=== PATIENT | female | born 1950 | race Caucasian/White ===

== ENCOUNTER 2021-10-31 10:15 | Emergency (ER) | payer OTHER, MEDICARE, SELFPAY ==
--- NOTE | ~2021-10-31 | XR_ITS ---
EXAMINATION: XR LUMBOSACRAL SPINE CLINICAL INFORMATION: Low back pain. COMPARISON: None TECHNIQUE: Three views of the lumbosacral spine. FINDINGS: Mild lumbar levoscoliosis is seen with apex at L3. L5-S1 is transitional with partial sacralization of L5, greater on the right side. Mild to severe multilevel degenerative disc disease is seen most pronounced at L3-4 and L5-S1. There is an approximate 45% superior plate compression deformity at L2. The remainder the vertebral bodies are intact. The soft tissues are unremarkable. A sacral simulation device is seen on the left side with lead terminating overlying the right sacrum. Mild sacroiliac degenerative joint changes are seen, left greater than right. XR/XR lumbar spine 2-3V IMPRESSION: Multilevel degenerative changes as well as transitional anatomy as detailed above. The superior plate compression deformity at L2 does not demonstrate acute features.
--- NOTE | ~2021-10-31 | XR_ITS ---
EXAMINATION: LEFT FEMUR AND PELVIS CLINICAL INFORMATION: Hip and thigh pain COMPARISON: None TECHNIQUE: Single view pelvis, 2 views left femur FINDINGS: A stimulator device is present implanted in the left buttock with lead seen overlying right sacrum. No pelvic fracture or bony destructive lesions are seen. The left femur is intact without fractures. Marked degenerative changes are present in the with narrowing of the medial compartment. The hip joint is unremarkable. XR/XR femur LT 2V IMPRESSION: No hip or pelvic fracture. Degenerative changes in the knee predominantly involving
--- NOTE | ~2021-10-31 | US_ITS ---
EXAMINATION: US VENOUS ULTRASOUND WITH DOPPLER LOWER EXTREMITY, LEFT CLINICAL INFORMATION: Left calf swelling, edema. Assess for occult DVT. COMPARISON: None TECHNIQUE: Ultrasound of the deep veins is performed from the hip to the calf with compression sonography and color and pulse Doppler assessment. Spectral analysis with color-flow imaging is performed. FINDINGS: There is normal venous compression and respiratory variation and augmented flow. The visualized common femoral vein, superficial femoral vein, profunda femoral vein, popliteal vein, and the trifurcation region shows no evidence of deep venous thrombosis. No popliteal fossa cyst demonstrated. There are incidental left inguinal nodes with normal cecil architecture and short axis dimensions 0.5 cm. US/US venous duplex LE LT IMPRESSION: No DVT demonstrated in the left lower extremity.
--- NOTE | ~2021-10-31 | XR_ITS ---
EXAMINATION: LEFT FEMUR AND PELVIS CLINICAL INFORMATION: Hip and thigh pain COMPARISON: None TECHNIQUE: Single view pelvis, 2 views left femur FINDINGS: A stimulator device is present implanted in the left buttock with lead seen overlying right sacrum. No pelvic fracture or bony destructive lesions are seen. The left femur is intact without fractures. Marked degenerative changes are present in the with narrowing of the medial compartment. The hip joint is unremarkable. XR/XR pelvis 1-2V IMPRESSION: No hip or pelvic fracture. Degenerative changes in the knee predominantly involving
[2021-10-31 10:23] VITALS: BP 130/83; BP 148/80; PULSE 84; PULSE 90; RESP 19; TEMP 36.5; O2SAT 98; BMI 27.4
--- NOTE | 2021-10-31 11:14 | ED.EXTPRO ---
HPI - Extremity Problem General Chief complaint: Extremity Problem Stated complaint: 01/02 LEFT LEG PAIN Time Seen by Provider: 10/31/21 10:31 Source: patient Mode of arrival: EMS History of Present Illness HPI Narrative: 71-year-old female with a past medical history of CVA with residual right sided deficits, breast cancer, herniated disc, asthma, HTN, and chronic urinary incontinence presents to the ED with LLE pain beginning Sunday night. She reports pain localized to hip and left thigh, exacerbated with movement. She describes the pain as sharp. She has been ambulating at home with a quad cane, where she lives alone. She denies pain radiation, fever, chills, headaches, vision changes, chest pain, shortness of breath, nausea, vomiting, abdominal pain. MD Complaint: extremity pain Related Data Home Medications Medication Instructions Recorded Confirmed albuterol sulfate 90 mcg/actuation 2 inh inhalation Q4H PRN Shortness 10/31/21 10/31/21 aerosol inhaler Of Breath amlodipine 2.5 mg tablet 1 tab PO BEDTIME 10/31/21 10/31/21 aspirin 81 mg tablet,delayed 1 tab PO DAILY 10/31/21 10/31/21 release calcium carbonate 600 mg-vitamin 1 tab PO BID 10/31/21 10/31/21 D3 10 mcg (400 unit) tablet cyanocobalamin (vitamin B-12) 1 tab PO DAILY 10/31/21 10/31/21 1,000 mcg tablet lidocaine 4 % topical patch 1 patch topical DAILY PRN Pain, 10/31/21 10/31/21 Moderate lisinopril 30 mg tablet 1 tab PO DAILY 10/31/21 10/31/21 loratadine 10 mg tablet 1 tab PO DAILY 10/31/21 10/31/21 multivitamin 1 tab PO DAILY 10/31/21 10/31/21 pantoprazole 40 mg tablet,delayed 1 tab PO DAILY 10/31/21 10/31/21 release simvastatin 40 mg tablet 1 tab PO BEDTIME 10/31/21 10/31/21 Allergies Allergy/AdvReac Type Severity Reaction Status Date / Time codeine [CODEINE] Allergy Unknown ANGIOEDEMA Unverified 12/11/19 17:14 Penicillins [PENICILLINS] Allergy Unknown RASH Unverified 12/11/19 17:14 From PERCOCET Allergy Unknown NAUSEA & Uncoded 12/11/19 17:14 VOMITING From WELLBUTRIN Allergy Unknown PT BECAME Uncoded 12/11/19 17:14 SI Review of Systems Review of Systems: Constitutional: No Fever, No Chills, No Fatigue, No Malaise ENT/Mouth: No Hearing loss, No Ear Pain, No Nasal Congestion, No Sore Throat Eyes: No Eye Pain, No Swelling, No Redness, No Foreign Body, No Discharge, No Vision Changes Cardiovascular: No Chest Pain, No SOB, No Dyspnea on Exertion, + Edema (chronic), No Palpitations Respiratory: No Cough, No Sputum, No Wheezing, No Smoke Exposure, No Dyspnea Gastrointestinal: No Nausea, No Vomiting, No Diarrhea, No Constipation, No Abdominal Pain Genitourinary: No Dysuria, No Urinary Frequency, No Hematuria, + chronic Urinary Incontinence, No Urgency, No Flank Pain Musculoskeletal: + Joint Pain, No Myalgias, No Joint Swelling Skin: No Skin Lesions, No rash Neuro: (baseline RUE and RLE residual deficits) No Weakness, No Numbness, No Paresthesias, No Loss of Consciousness, No Dizziness, No Headache Yes all other systems are reviewed and are negative Constitutional: Constitutional: Reports as per HPI Neurologic: Denies Sensory deficit (Neuro) [facility] Past Medical History Attestation statement: The following information was validated with the patient. Social History Social History Advance Directives: Yes Advance Directives on File: Yes Advance Directives Date on File: 10/31/21 Physical Exam Vital Signs: Vital Signs: Last Vital Signs Temp 97.9 F 10/31/21 16:49 Pulse 75 10/31/21 21:34 Resp 15 10/31/21 21:34 BP 132/62 10/31/21 21:34 Pulse Ox 94 10/31/21 21:34 O2 Del Method 10/31/21 21:34 BMI result Body Mass Index 27.4 Const: General: cooperative, healthy appearing and no acute distress Orientation/consciousness: patient oriented x3 Limitations: no limitations HEENT: Head: Yes normal to inspection and Yes atraumatic Ears: hearing grossly normal bilaterally General nose exam: Normal external nose present Face and sinus: Yes normal facial exam Eyes: General: appearance normal, both eyes and all related structures Pupils: Equal, round and reactive pupils present EOM: EOMs intact bilaterally Neck: Neck: Yes normal visual inspection and Yes no meningeal signs Resp: Effort & Inspection: normal respiratory effort, able to speak in complete sentences and no respiratory distress Auscultation: clear to auscultation bilaterally, no crackles, no rales, no rhonchi and no wheezes Cardio: Rate: regular rate Heart sounds: S1 normal heart sound present and S2 normal heart sound present GI: Inspection: Yes normal to inspection and Yes obesity Palpation (GI): Soft to palpation, nontender, no guarding and not rigid : General: Yes no CVA tenderness Back/Spine/Pelvis: Back: no CVA tenderness Skin: Rashes: no rashes Wounds: no wounds Neuro: Other: +resdiual RUE and RLE deficits General: patient oriented x3, tone normal, no meningeal signs and Unable to assess gait Cranial nerves: Yes Equal, round and reactive pupils present Gait exam (Neuro): Unable to assess gait Sensory Exam: No Sensory deficit (Neuro) Extrem: Other: chronic bilateral lower extremity edema. Left hip without noted deformity, nontender to palpation, passive ROM intact without pain. + mild left anterior thigh tenderness. No appreciable swelling/erythema, no warmth/streaking, no fluctuance/induration or ecchymosis. Compartments soft. Neurovascularly intact distally. General: Yes normal to inspection, Yes no calf tenderness and Yes edema Course Course Course Narrative: -no leukocytosis. Labs otherwise unremarkable -UA infected > IV Rocephin ordered US venous duplex LE LT IMPRESSION: No DVT demonstrated in the left lower extremity. 1438--XR pelvis 1-2V/XR femur LT 2V IMPRESSION: No hip or pelvic fracture. Degenerative changes in the knee predominantly involving? XR lumbar spine 2-3V IMPRESSION: Multilevel degenerative changes as well as transitional anatomy as detailed above. The superior plate compression deformity at L2 does not demonstrate acute features. > physical therapy evaluated patient and recommended short-term rehab. Pending Case Management eval/placement. Physician observation initiated. ED care transferred to [facility] pending case management MDM - Extremity (Nontraumatic) MDM Narrative Medical decision making narrative: 71-year-old female with a past medical history of CVA with residual right sided deficits, breast cancer, herniated disc, asthma, HTN, and chronic urinary incontinence presents to the ED with LLE pain beginning day night. Vital signs remain stable. Patient reports unilateral leg pain, specific to the left hip and thigh. On exam, bilateral chronic edema noted to the lower extremities. Slight pain upon palpation of left thigh. No evidence of cellulitis, no deformity. Concern for possible DVT vs left hip/femur fracture vs. lumbar spine fracture vs. exacerbation of chronic lower back pain vs strain. Low suspicion for compartment syndrome or necrotizing fasciitis. Low concern for cauda equina/cord compression. No active infection at this time. Low suspicion for ACS/PE. Plan: Duplex venous US, Labs, XR femur, hip, lumbar spine, case management, PT evaluation Differential Diagnosis Differential diagnosis: Likely lower extremity edema and deep vein thrombosis of lower extremity Medical Records Attestation: I reviewed the patient's medical records. Lab Data Attestation: I reviewed the patient's lab results. Result diagrams: 10/31/21 11:21 10/31/21 11:21 Labs: Lab Results 10/31/21 10/31/21 10/31/21 Range/Units 11:21 11:21 12:04 WBC 7.1 (4.8-10.8) X10*3/uL RBC 4.12 L (4.20-5.50) X10*6/uL Hgb 12.1 (12.0-16.0) g/dl Hct 37.3 (37.0-47.0) % MCV 90.5 (80.0-98.0) fL MCH 29.4 (27.0-33.0) pg MCHC 32.4 (31.0-35.0) g/dl RDW 12.4 (11.0-16.0) % Plt Count 241 (160-400) X10*3/uL MPV 10.7 (9.4-12.3) fL Immature Gran % (Auto) 0.7 H (0.0-0.4) % Neut % (Auto) 63.3 (45-73) % Lymph % (Auto) 25.3 (20-40) % [place] % (Auto) 8.0 (2-11) % Eos % (Auto) 2.0 (0-4) % Baso % (Auto) 0.7 (0-2) % Lymph # (Auto) 1.8 (1.2-4.9) X10*3/uL [place] # (Auto) 0.6 (0.1-1.2) X10*3/uL Eos # (Auto) 0.1 (0.0-0.4) X10*3/uL Baso # (Auto) 0.1 (0.0-0.2) X10*3/uL Abs Immat Gran (auto) 0.05 H (0.00-0.03) X10*3/uL Absolute Neuts (auto) 4.5 (2.0-8.3) x10*3/uL Absolute Nucleated RBC 0.000 (0.0-0.012) X10*3/uL Nucleated RBC % (auto) 0.0 (0.0-0.2) /100WBC Sodium 142 (135-145) mmol/L Potassium 3.7 (3.3-5.1) mmol/L Chloride 108 (96-108) mmol/L Carbon Dioxide 23 (22-29) mmol/L Anion Gap 15 (12-20) BUN 16 (9-16) mg/dL Creatinine 0.79 (0.5-1.4) mg/dL Estim Creat Clear Calc 61.9 Estimated GFR > 60 Random Glucose 127 H (60-115) mg/dL Calcium 8.9 (8.4-10.2) mg/dL Urine Color YELLOW Urine Appearance HAZY Urine pH 5.5 (5.0-8.0) Ur Specific [place] >= 1.030 H (1.005-1.025) Urine Protein NEG (NEG-TRACE) MG/DL Urine Glucose (UA) NEG (NEG) MG/DL Urine Ketones NEG (NEG) MG/DL Urine Blood NEG (NEG) Urine Nitrite POS H (NEG) Ur Leukocyte Esterase 1+ H (NEG) Urine RBC 0 (0) /HPF Urine WBC 10-14 H (0-4) /HPF Ur Squamous Epith Cells TRACE /LPF Urine Bacteria 4+ /LPF COVID-19 (CHERYL) (Negative) COVID-19 Clin Com 10/31/21 Range/Units 21:39 WBC (4.8-10.8) X10*3/uL RBC (4.20-5.50) X10*6/uL Hgb (12.0-16.0) g/dl Hct (37.0-47.0) % MCV (80.0-98.0) fL MCH (27.0-33.0) pg MCHC (31.0-35.0) g/dl RDW (11.0-16.0) % Plt Count (160-400) X10*3/uL MPV (9.4-12.3) fL Immature Gran % (Auto) (0.0-0.4) % Neut % (Auto) (45-73) % Lymph % (Auto) (20-40) % [place] % (Auto) (2-11) % Eos % (Auto) (0-4) % Baso % (Auto) (0-2) % Lymph # (Auto) (1.2-4.9) X10*3/uL [place] # (Auto) (0.1-1.2) X10*3/uL Eos # (Auto) (0.0-0.4) X10*3/uL Baso # (Auto) (0.0-0.2) X10*3/uL Abs Immat Gran (auto) (0.00-0.03) X10*3/uL Absolute Neuts (auto) (2.0-8.3) x10*3/uL Absolute Nucleated RBC (0.0-0.012) X10*3/uL Nucleated RBC % (auto) (0.0-0.2) /100WBC Sodium (135-145) mmol/L Potassium (3.3-5.1) mmol/L Chloride (96-108) mmol/L Carbon Dioxide (22-29) mmol/L Anion Gap (12-20) BUN (9-16) mg/dL Creatinine (0.5-1.4) mg/dL Estim Creat Clear Calc Estimated GFR Random Glucose (60-115) mg/dL Calcium (8.4-10.2) mg/dL Urine Color Urine Appearance Urine pH (5.0-8.0) Ur Specific [place] (1.005-1.025) Urine Protein (NEG-TRACE) MG/DL Urine Glucose (UA) (NEG) MG/DL Urine Ketones (NEG) MG/DL Urine Blood (NEG) Urine Nitrite (NEG) Ur Leukocyte Esterase (NEG) Urine RBC (0) /HPF Urine WBC (0-4) /HPF Ur Squamous Epith Cells /LPF Urine Bacteria /LPF COVID-19 (CHERYL) Negative (Negative) COVID-19 Clin Com See Note Discharge Plan Discharge Clinical Impression: Acute UTI, Pain in left leg Patient Disposition: Still a Patient Prescriptions: No Action cyanocobalamin (vitamin B-12) 1,000 mcg tablet 1 tab PO DAILY amlodipine 2.5 mg tablet 1 tab PO BEDTIME aspirin 81 mg tablet,delayed release (DR/EC) 1 tab PO DAILY simvastatin 40 mg tablet 1 tab PO BEDTIME pantoprazole 40 mg tablet,delayed release (DR/EC) 1 tab PO DAILY lisinopril 30 mg tablet 1 tab PO DAILY loratadine 10 mg tablet 1 tab PO DAILY calcium carbonate-vitamin D3 600 mg-10 mcg (400 unit) tablet 1 tab PO BID multivitamin Tablet 1 tab PO DAILY lidocaine 4 % Adhesive Patch,Medicated 1 patch TOPICAL DAILY PRN (Reason: Pain, Moderate) Label Comments: to leg albuterol sulfate 90 mcg/actuation HFA aerosol inhaler 2 inh inhalation Q4H PRN (Reason: Shortness Of Breath)
[2021-10-31 11:24] LABS: MANUAL DIFF FLAG NO
[2021-10-31 11:25] LABS: Basophils Absolute Auto 0.1 X10*3/uL (0.0-0.2); Basophils Percent Auto 0.7 % (0-2); Eosinophils Absolute Auto 0.1 X10*3/uL (0.0-0.4); Hematocrit 37.3 % (37.0-47.0); Hemoglobin 12.1 g/dl (12.0-16.0); Imm Gran Abs Auto 0.05 X10*3/uL (0.00-0.03); Imm Gran Pct Auto 0.7 % (0.0-0.4); Lymphocytes Absolute Auto 1.8 X10*3/uL (1.2-4.9); Lymphocytes Percent Auto 25.3 % (20-40); Mean Corpuscular HGB Conc 32.4 g/dl (31.0-35.0); Mean Corpuscular Hemoglobin 29.4 pg (27.0-33.0); Mean Corpuscular Volume 90.5 fL (80.0-98.0); Mean Platelet Volume 10.7 fL (9.4-12.3); Monocytes Absolute Auto 0.6 X10*3/uL (0.1-1.2); Neutrophils Absolute Auto 4.5 x10*3/uL (2.0-8.3); Neutrophils Percent Auto 63.3 % (45-73); Platelet Count 241 X10*3/uL (160-400); Red Blood Count 4.12 X10*6/uL (4.20-5.50); Red Cell Distribution Width 12.4 % (11.0-16.0); White Blood Count 7.1 X10*3/uL (4.8-10.8)
[2021-10-31 11:40] LABS: Anion Gap 15 (12-20); Blood Urea Nitrogen 16 mg/dL (9-16); Calcium 8.9 mg/dL (8.4-10.2); Carbon Dioxide 23 mmol/L (22-29); Chloride 108 mmol/L (96-108); Creatinine Clr Calc Pharmacy 61.9; Estimated Glomerular Filt Rate > 60; Glucose Random 127 mg/dL (60-115); Potassium 3.7 mmol/L (3.3-5.1); Sodium 142 mmol/L (135-145)
[2021-10-31 12:00] VITALS: BP 125/50; PULSE 68; RESP 13; O2SAT 96
[2021-10-31 12:39] LABS: Appearance Urine HAZY; Color Urine YELLOW; Glucose Urine UA NEG (NEG); Leukocyte Esterase Urine 1+ (NEG); Nitrite Urine POS (NEG); PH 5.5 (5.0-8.0); Specific Gravity - Urine >= 1.030 (1.005-1.025); UACC Culture Trigger YES; Urine Blood NEG (NEG); Urine Ketones NEG (NEG); Urine Protein NEG (NEG-TRACE)
[2021-10-31 12:51] LABS: Bacteria Urine 4+ /LPF; Squamous Epithelial Cell Urine TRACE /LPF
[2021-10-31 12:53] LABS: RBC Urine 0 /HPF (0)
[2021-10-31] MEDS: cefTRIAXone sodium 1 GM in 0.9 % Sodium Chloride 50 ML IV (16:13)
[2021-10-31 16:49] VITALS: BP 151/52; PULSE 68; RESP 16; TEMP 36.6; O2SAT 94
[2021-10-31] MEDS: Lidocaine 4 % Patch ADH..PATCH 1 PATCH TRANSDERMA (17:45)
--- NOTE | 2021-10-31 18:58 | PHA.MEDREC ---
Pharmacy Consult ? Medication Reconciliation Pharmacy has completed the medication reconciliation. spoke with pt
--- NOTE | 2021-10-31 19:13 | MHC.CM.ED ---
CM met with patient at the request of Hoa RYDER. A&O x3. Lives alone. Ambulates with quad cane. HX CVA c R hemiplegia. Has a wheelchair. Sleeps in a chair. Tells CM her electric bed needs repair. Has PIPE SETTER whom she privately pays. States she worked for a [employer] that closed, and PIPE SETTER has continued to care for her. Has no family. HCP reviewed, completed and signed. Copies given. Uploaded into [facility] [employer] and [facility] [employer]. HCP/PIPE SETTER Suyapa Mendoza. Per pt, she does not have a phone. Pt is vague about how often the PIPE SETTER comes. States she was supposed to come tonight, but she is in the hospital. PCP is Dr. Haley Smith ([phone]). Please call in the morning to obtain last office visit and med list. Moderna x2. Pt states had her second vaccination in August. Not yet due for a booster. States she has M[facility] from [facility]. PT recommends STR and patient is agreeable. 18 referrals placed locally. CM to follow for d/c needs.
[2021-10-31 21:34] VITALS: BP 132/62; PULSE 75; RESP 15; O2SAT 94
[2021-10-31 22:01] LABS: COVID-19 Test Negative (Negative)
[2021-10-31] MEDS: amLODIPine Besylate 2.5 MG TABLET PO (22:09)
[2021-10-31] MEDS: Atorvastatin Calcium 20 MG TABLET PO (22:09)
--- NOTE | 2021-10-31 22:20 | PC.NURSE ---
medicated per provider order.
[2021-10-31] MEDS: Ibuprofen 600 MG TABLET PO (22:57)
--- NOTE | 2021-10-31 22:59 | PC.NURSE ---
pt reporting generalized pain, medicated per provider order.
--- NOTE | 2021-11-01 00:07 | PC.NURSE ---
PATIENT PERWICK OUTPUT 1000 ML
[2021-11-01] MEDS: traMADoL HCL 50 MG TABLET PO (01:31)
--- NOTE | 2021-11-01 05:16 | PC.NURSE ---
Pt coco rodgers c/o nausea. Dr Mims made aware, v/o zofran
--- NOTE | 2021-11-01 05:21 | PC.NURSE ---
This RN to bedside to medicate with zofran. Pt states I've been here for so long and nobody has done anything for me. My fingers feel like they're going to burst. This RN asks pt to please explain her sx so this RN can attempt to help pt. Pt states I've been telling people about this for hours and nobody is doing anything. I'm so sick of you, get out. This RN explains to pt that pt has not conversed with this RN about her sx. Pt states get out of here. No more blood pressure, no medicine. Leave me alone. I'm done with you. Get out. This RN states I would like to help you feel better, and right now I have medicine for your nausea. I would like to medicate you. Pt reiterates, No, get out.
[2021-11-01 06:00] VITALS: RESP 16
--- NOTE | 2021-11-01 06:16 | PC.NURSE ---
patient refused care throughout the night ,also refused vitals sign ,rn marian peña .
--- NOTE | 2021-11-01 06:48 | PC.NURSE ---
PATIENT HAS BEEN VERBALLY ABUSIVE TOWARDS STAFF ,REFUSING CARE CHASING STAFF OUT OF HER ROOM ,STATING THAT SHE COME HERE FOR HELP AND SHE NOT GETTING HELP .
[2021-11-01] MEDS: lisinopriL 10 MG TABLET 30 MG PO (07:48)
[2021-11-01] MEDS: Loratadine 10 MG TABLET PO (07:48)
[2021-11-01] MEDS: Omeprazole 20 MG CAPSULE.DR PO (07:49)
[2021-11-01 07:51] VITALS: BP 123/91; PULSE 74; O2SAT 95
[2021-11-01] MEDS: Aspirin Enteric Coated 81 MG TABLET.DR PO (09:50)
--- NOTE | 2021-11-01 12:03 | PC.NURSE ---
PT ACCUSING STAFF OF YELLING AT HER AND REFUSING SPECIFIC STAFF MEMBERS TO GO INTO HER ROOM. STATED I'M HERE FOR HELP BUT WE ARE NOT DOING OUR JOBS . PT WAS COMPLIANT WITH TAKING MEDS AND BREAKFAST FROM THIS RN. SHE ASKED THIS RN TO RECHECK HER URINE BECAUSE SHE DOSEN'T BELIEVE THE RESULTS ARE CORRECT.
--- NOTE | 2021-11-01 13:59 | MHC.CM.ED ---
PATIENT NOW REFUSES REHAB DESPITE THIS COST REPORT CLERK'S ATTEMPT TO CONVINCE OTHERWISE. JUAN C ESTRADA, RN, AND [facility] MADE AWARE. UNIT ALSO MADE AWARE. PATIENT STATES SHE HAS A HOME HEALTH AIDE THAT CAN PROVIDE CARE AND SHE DOES NOT WANT SHORT TERM REHAB. SHE STATES LEAD PRESSER HAS NO PHONE. CM THEREFORE UNABLE TO CALL, LAST PAITENT CONTACT WAS PATIENT'S FATHER WHO IS .
--- NOTE | 2021-11-01 18:17 | MHC.CM.ED ---
CM called and spoke with patient at the request of Brittney RYDER. Pt was D/C today after refusing STR. Pt left to home via BLS with antibiotic script. Antibiotics were ordered at her pharmacy. CM requested for patient to return to the ED, so she could be placed in STR, as pt is telling CM that it is very hard for her to get around with her leg pain and that her neighbor was helping her. Pt refuses to return to our facility. Pt states if she feels she cannot manage at home, she will go somewhere else. Pt states she contacted her RELIGION TEACHER through her daughter and is waiting for her to call her back. CM again requested pt return if she feels she cannot care for herself. Charge nurse Haliee and Brittney RYDER aware.
== END 2021-11-01 15:41 | disposition home or self-care (01) ==
PROVIDERS: Physician Assistant; Emergency Provider Emergency Medicine
DX: M79.605 Pain in left leg (principal); N39.0 Urinary tract infection, site not specified; I10 Essential (primary) hypertension; Z20.822 Contact with and (suspected) exposure to COVID-19; Z79.82 Long term (current) use of aspirin; Z79.02 Long term (current) use of antithrombotics/antiplatelets; Z79.899 Other long term (current) drug therapy
CPT/HCPCS: 36415; 72100; 72170; 73552; 80048; 81001; 85025; 87040; 87086; 87635; 93971; 96365; 96375; 97162; 99285; J0696